=== PATIENT | male | born 1980 | race Caucasian/White ===

== ENCOUNTER 2022-02-21 13:04 | Emergency (ER) | payer SELFPAY ==
[2022-02-21] MEDS ORDERED: Sodium Chloride 0.9% 10 ML Syringe FLUSH PRN (13:12)
[2022-02-21] MEDS ORDERED: Sodium Chloride 0.9% 2.5 ML Syringe FLUSH PRN (13:12)
[2022-02-21] MEDS ORDERED: LORazepam 2 MG/ML SDV IVPUSH ONE (13:39)
[2022-02-21] MEDS ORDERED: Sodium Chloride 0.9% 1,000 ML IV ONE (13:40)
[2022-02-21 13:50] LABS: CARBON DIOXIDE,CO2 25.9 mmol/L (21.0-32.0); POTASSIUM,K 3.7 mmol/L (3.5-5.1)
[2022-02-21 13:59] LABS: LIPASE 165 U/L (73-393)
[2022-02-21 14:18] LABS: CORONAVIRUS COVID-19 NAA POSITIVE (NEGATIVE)
[2022-02-21 15:18] LABS: INFLUENZA A NAA NEGATIVE (NEGATIVE); INFLUENZA B NAA NEGATIVE (NEGATIVE)
== END 2022-02-21 16:27 | disposition home or self-care (01) ==
LOC: MW.ED 13:04
DX: U07.1 COVID-19 (principal); F10.239 Alcohol dependence with withdrawal, unspecified
CPT/HCPCS: 0240U; 36415; 71045; 80053; 80307; 83690; 84484; 85025; 85379; 93005; 96361; 96374; 99284; J2060; J3490; J7030; 99283

== ENCOUNTER 2023-02-07 07:42 | Emergency (ER) | payer SELFPAY | END 2023-02-07 08:22 | disposition home or self-care (01) | LOC: MW.ED 07:42 | DX: F10.19 Alcohol abuse with unspecified alcohol-induced disorder (principal); F19.10 Other psychoactive substance abuse, uncomplicated | CPT/HCPCS: 99283; 99284 ==